=== PATIENT | female | born 1990 | race Caucasian/White ===

== ENCOUNTER 2017-05-12 20:21 | Emergency (ER) | payer MEDICAID, OTHER ==
[~2017-05-12] VITALS: Ht 149.9 cm; Wt 53.0 kg
[2017-05-13] MEDS ORDERED: KETOROLAC 60MG/2ML VIAL IM ONE (02:00)
[2017-05-13 06:21] VITALS: BP 117/62
== END 2017-05-13 06:22 | disposition home or self-care (01) ==
LOC: ER 20:21
DX: J06.9 Acute upper respiratory infection, unspecified (principal); F12.10 Cannabis abuse, uncomplicated
CPT/HCPCS: 71010; 81025; 96372; 99283; J1885; Z7610